=== PATIENT | female | born 1950 | race Caucasian/White ===

== ENCOUNTER 2016-12-06 19:15 | Observation (INO) | payer MEDICARE ==
[2016-12-06 19:14] LABS: BASO % 0.4 % (0-2); EOS % 3.8 % (0-7); EOSINOPHIL ABSOLUTE COUNT 0.4 tho/cmm (0.0-0.7); HCT-HEMATOCRIT 39.2 % (34.0-49.0); HGB-HEMOGLOBIN 13.6 gm/dl (12.0-15.5); IMMATURE GRANULOCYTES ABSOLUTE 0.02 tho/cmm (0-0.03); IMMATURE GRANULOCYTES PERCENT 0.2 % (0-0.3); LYMPH % 29.1 % (20-45); LYMPH ABSOLUTE COUNT 2.9 tho/cmm (0.8-4.5); MCH (MEAN CORPUSCULAR HGB) 30.8 pg (28.0-32.0); MCHC MEAN CORPUSCULAR HGB CONC 34.7 % (32.0-36.0); MCV (MEAN CELL VOLUME) 88.9 fl (82.0-96.0); MONO % 7.3 % (0-12); MONOCYTE ABSOLUTE COUNT 0.7 tho/cmm (0.0-1.2); NEUTROPHIL ABSOLUTE COUNT 5.9 tho/cmm (1.6-8.0); NEUTROPHIL-AUTOMATED 5.9 tho/cmm (1.6-8.0); NEUTROPHILS % 59.2 % (40-80); PLATELET COUNT 378 tho/cmm (150-450); RED BLOOD COUNT 4.41 mil/cmm (4.00-5.20); RED CELL DISTRIBUTION WIDTH 13.9 % (12.4-16.4)
[2016-12-06 19:30] LABS: ANION GAP 13 mmol/L (0-20); BLOOD UREA NITROGEN 19 mg/dl (6-24); CALCIUM 9.5 mg/dl (8.5-10.5); CARBON DIOXIDE-VENOUS 25 mmol/L (22-32); CHLORIDE 106 mmol/l (96-110); CREATININE 0.78 mg/dl (0.50-1.10); GLUCOSE 114 mg/dL (70-110); POTASSIUM 3.8 mmol/L (3.7-5.1); SODIUM 140 mmol/L (135-145); eGFR VALUE FOR BLACK >90 mL/Min
[2016-12-06] MEDS ORDERED: LEXAPRO10 M2 PO (20:52)
[2016-12-06] MEDS ORDERED: IBUPROFEN800 M1 PO (20:52)
[2016-12-06] MEDS ORDERED: GLUCOPHAGE XR500 M1 PO (20:52)
[2016-12-06] MEDS ORDERED: VENTOLIN HFA18 G2 PO (20:53)
[2016-12-06] MEDS ORDERED: OMEPRAZOLE40 M2 PO (20:53)
[2016-12-06] MEDS ORDERED: HYDROCHLOROTHIA25 M1 PO (20:53)
[2016-12-07] MEDS ORDERED: COZAAR100 M1 PO (11:34)
[2016-12-08 06:26] LABS: BLOOD UREA NITROGEN 16 mg/dl (6-24); CREATININE 0.83 mg/dl (0.50-1.10); eGFR VALUE FOR BLACK 85 mL/Min
[2016-12-08] MEDS ORDERED: BRILINTA90 M1 PO (08:55)
[2016-12-08] MEDS ORDERED: NITROGLYCERIN0.4 M2 SL (08:57)
[2016-12-08] MEDS ORDERED: METOPROLOL TART25 M1 PO (08:57)
[2016-12-08] MEDS ORDERED: ASPIRIN81 M1 PO (08:58)
[2016-12-08] MEDS ORDERED: LIPITOR20 M1 PO (08:59)
[2017-05-11] MEDS ORDERED: IBUPROFEN800 M1 PO (09:45)
[2017-05-11] MEDS ORDERED: PLAVIX75 M1 PO (09:46)
[2017-05-11] MEDS ORDERED: LASIX20 M1 PO (11:02)
[2017-05-11] MEDS ORDERED: FISH OIL 11000 MG/CA PO (11:03)
[2017-05-11] MEDS ORDERED: MULTIVITAMINS1 EAC7 PO (11:03)
[2017-05-11] MEDS ORDERED: VITAMIN D32000 UNI3 PO (11:03)
[2017-05-11] MEDS ORDERED: VENTOLIN HFA18 G2 INH (11:04)
== END 2016-12-08 10:00 ==
LOC: EDMED 19:15 → EMR2 23:48 → CCU 12-07 10:58
PROVIDERS: Internal Medicine Interventional Cardiology; Nurse Practitioner Family; Physician Assistant; ADMIT Internal Medicine Cardiovascular Disease
PROC: 4A023N7 Measurement of Cardiac Sampling and Pressure, Left Heart, Percutaneous Approach (ICD-10-PCS; principal; 2016-12-07)
PROC: B2111ZZ Fluoroscopy of Multiple Coronary Arteries using Low Osmolar Contrast (ICD-10-PCS; 2016-12-07)
PROC: 027034Z Dilation of Coronary Artery, One Artery with Drug-eluting Intraluminal Device, Percutaneous Approach (ICD-10-PCS; 2016-12-07)
PROC: B31N1ZZ Fluoroscopy of Other Upper Arteries using Low Osmolar Contrast (ICD-10-PCS; 2016-12-07)
DX: I21.4 Non-ST elevation (NSTEMI) myocardial infarction (principal); I25.10 Atherosclerotic heart disease of native coronary artery without angina pectoris; I10 Essential (primary) hypertension; E11.9 Type 2 diabetes mellitus without complications; K21.9 Gastro-esophageal reflux disease without esophagitis; I34.0 Nonrheumatic mitral (valve) insufficiency; Z23 Encounter for immunization; Z79.84 Long term (current) use of oral hypoglycemic drugs; Z79.899 Other long term (current) drug therapy; Z86.010 Personal history of colon polyps; Z82.49 Family history of ischemic heart disease and other diseases of the circulatory system; Z96.651 Presence of right artificial knee joint; Z98.890 Other specified postprocedural states
CPT/HCPCS: C1769; C1874; C1887; C1894; C9600-LC; G0008; G0378; J1644; J1650; J2250; J2405; J3010; Q9967